=== PATIENT | female | born 1995 | race Two or more races ===

== ENCOUNTER 2018-06-26 04:58 | Inpatient (IN) | payer MEDICAID ==
[~2018-06-26] VITALS: Ht 157.5 cm; Wt 117.9 kg
[2018-06-26] VITALS (13 sets, daily range): BP systolic 106–146; BP diastolic 55–77
[2018-06-26] MEDS ORDERED: LACTATED RINGER'S 1,000 ML IV SCH (05:08)
[2018-06-26 06:09] LABS: Basophils # (auto) 0 uL; Basophils % (auto) 0.2 % (0.0-2.0); Eosinophils # (auto) 0.1 uL; Eosinophils % (auto) 0.7 % (0.0-7.0); Hematocrit 38.6 % (36.0-46.0); Hemoglobin 12.6 g/dL (12.2-16.2); Lymphocytes # (auto) 1.7 uL; Lymphocytes % (auto) 22.5 % (10.0-50.0); Mean Corpuscular Hgb Conc. 32.7 g/dL (32.0-36.0); Mean Corpuscular Volume 82.4 fL (80.0-100.0); Monocytes # (auto) 0.5 uL; Monocytes % (auto) 6.9 % (0.0-12.0); Neutrophils # (auto) 5.2 uL; Neutrophils % (auto) 69.7 % (37.0-80.0); Platelet Count (auto) 258 10^3/uL (140-450); Red Blood Cells 4.68 10^6/uL (4.0-5.20); Red Cell Distribution Width 15.3 % (11.8-14.3); White Blood Cell 7.4 10^3/uL (4.4-10.8)
[2018-06-26 06:17] LABS: Urine Bacteria NONE SEEN /hpf (None Seen); Urine Blood Negative /uL (Negative); Urine Mucus FEW (None Seen); Urine Specific Gravity 1.018 (1.001-1.035); Urine WBC 1 /hpf (0 - 5)
[2018-06-26 06:23] LABS: INR 0.87 (0.9-1.15); Partial Thromboplastin Time 27.3 sec (23.78-33.04); Prothrombin Time 9.4 sec (9.27-12.13)
[2018-06-26 06:31] LABS: Albumin 2.4 g/dL (3.4-5.0); BUN/Creatinine Ratio 16.7; Bilirubin, Total 0.2 mg/dL (0.2-1.0); Calcium 8.2 mg/dL (8.5-10.1); Potassium 3.9 mmol/L (3.5-5.1)
[2018-06-26] MEDS ORDERED: TETRACAINE 1% INJ 2 ML VIAL IJ ONE (08:50)
[2018-06-26] MEDS ORDERED: fentaNYL CITRATE 100 MCG/2 ML VL ONE (08:55)
[2018-06-26] MEDS ORDERED: SUCCINYLCHOLINE CHLORIDE 20 MG/ML 10ML VIAL IV ONE (09:09)
[2018-06-26] MEDS ORDERED: LACT. RINGERS/OXYTOCIN 20UNITS 1,000 ML IV SCH (10:13)
[2018-06-26] MEDS ORDERED: MORPHINE SULFATE 4 MG/ML SYR/VIAL IV PRN (10:15)
[2018-06-26] MEDS ORDERED: KETOROLAC TROMETH 30 MG/ML 1ML VIAL IV PRN (10:15)
[2018-06-26] MEDS ORDERED: ceFAZolin 1GM/50ML 50 ML IV SCH (10:15)
[2018-06-26] MEDS ORDERED: ONDANSETRON HCL 4 MG/2 ML VIAL IV PRN (10:15)
[2018-06-26] MEDS ORDERED: ePHEDrine SULFATE 50 MG/ML AMP IV PRN (10:45)
[2018-06-26] MEDS ORDERED: ONDANSETRON HCL 4 MG/2 ML VIAL IV ONE (10:45)
[2018-06-26] MEDS ORDERED: hydrALAZINE HCL 20 MG/ML VL IV PRN (10:45)
[2018-06-26] MEDS ORDERED: HYDROmorphone HCL 2 MG/ML VL IV PRN (10:45)
[2018-06-26] MEDS ORDERED: OXYTOCIN 10 UNIT/ML 10ML VIAL ONE (10:49)
[2018-06-26] MEDS ORDERED: OXYTOCIN 10UNIT/ML 1ML VIAL ONE (10:51)
[2018-06-26 11:17] LABS: Basophils # (auto) 0 uL; Basophils % (auto) 0.3 % (0.0-2.0); Eosinophils # (auto) 0 uL; Eosinophils % (auto) 0.4 % (0.0-7.0); Hematocrit 38.9 % (36.0-46.0); Hemoglobin 12.6 g/dL (12.2-16.2); Lymphocytes % (auto) 19.3 % (10.0-50.0); Mean Corpuscular Hemoglobin 27.3 pg (28.0-32.0); Mean Corpuscular Hgb Conc. 32.5 g/dL (32.0-36.0); Mean Corpuscular Volume 83.9 fL (80.0-100.0); Monocytes # (auto) 0.5 uL; Monocytes % (auto) 4.7 % (0.0-12.0); Neutrophils # (auto) 7.9 uL; Neutrophils % (auto) 75.3 % (37.0-80.0); Platelet Count (auto) 267 10^3/uL (140-450); Red Blood Cells 4.63 10^6/uL (4.0-5.20); Red Cell Distribution Width 15.7 % (11.8-14.3); White Blood Cell 10.4 10^3/uL (4.4-10.8)
[2018-06-26] MEDS: ceFAZolin 1GM/50ML 50 ML IV SCH (18:00)
[2018-06-26] MEDS: LACTATED RINGER'S 1,000 ML IV SCH (19:32)
[2018-06-26] MEDS: KETOROLAC TROMETH 30 MG/ML 1ML VIAL IV PRN (19:32)
[2018-06-26] MEDS: MORPHINE SULF INJ 2 MG/ML SYRINGE 1ML IV PRN (22:28)
[2018-06-27] MEDS: KETOROLAC TROMETH 30 MG/ML 1ML VIAL IV PRN (01:58)
[2018-06-27] MEDS: ceFAZolin 1GM/50ML 50 ML IV SCH ×2 (01:58→10:18)
[2018-06-27 02:50] VITALS: BP 115/52
[2018-06-27] MEDS: LACTATED RINGER'S 1,000 ML IV SCH (03:04)
[2018-06-27 04:06] LABS: RPR Non Reactive (Non Reactive)
[2018-06-27] MEDS: MORPHINE SULF INJ 2 MG/ML SYRINGE 1ML IV PRN (05:21)
[2018-06-27] MEDS ORDERED: TETANUS-DIPTH-ACEL PERTUSSIS 0.5ML SYRG IM ONE (06:30)
[2018-06-27 06:39] LABS: Basophils # (auto) 0 uL; Basophils % (auto) 0.2 % (0.0-2.0); Eosinophils # (auto) 0 uL; Eosinophils % (auto) 0.3 % (0.0-7.0); Hematocrit 31.4 % (36.0-46.0); Hemoglobin 10.5 g/dL (12.2-16.2); Lymphocytes # (auto) 1.3 uL; Lymphocytes % (auto) 16.2 % (10.0-50.0); Mean Corpuscular Hemoglobin 27.8 pg (28.0-32.0); Mean Corpuscular Hgb Conc. 33.3 g/dL (32.0-36.0); Mean Corpuscular Volume 83.5 fL (80.0-100.0); Monocytes # (auto) 0.5 uL; Monocytes % (auto) 5.5 % (0.0-12.0); Neutrophils # (auto) 6.5 uL; Neutrophils % (auto) 77.8 % (37.0-80.0); Platelet Count (auto) 221 10^3/uL (140-450); Red Blood Cells 3.77 10^6/uL (4.0-5.20); Red Cell Distribution Width 15.4 % (11.8-14.3); White Blood Cell 8.3 10^3/uL (4.4-10.8)
[2018-06-27 07:30] VITALS: BP 115/56
[2018-06-27] MEDS ORDERED: BISACODYL 10 MG RECT SUPP PR PRN (08:00)
[2018-06-27] MEDS: HYDROcodone-ACET 5/325MG TAB PO PRN ×3 (08:27→20:35)
[2018-06-27] MEDS: SIMETHICONE 80 MG CHEWABLE TABLET PO SCH ×4 (08:27→22:02)
[2018-06-27] MEDS: DOCUSATE SOD 100 MG CAP PO SCH ×2 (10:18→22:02)
[2018-06-27] MEDS: DOCUSATE CALCIUM 240 MG CAP PO SCH (10:18)
[2018-06-27 10:50] VITALS: BP 130/60
[2018-06-27] MEDS ORDERED: PREN27TA7 OR (11:00)
[2018-06-27] MEDS: IBUPROFEN 800 MG TAB PO PRN (12:01)
[2018-06-27 15:00] VITALS: BP 116/49
[2018-06-27 19:05] VITALS: BP 116/74
[2018-06-27 23:00] VITALS: BP 121/76
[2018-06-28] MEDS: HYDROcodone-ACET 5/325MG TAB PO PRN ×3 (01:02→16:50)
[2018-06-28 03:00] VITALS: BP 116/65
[2018-06-28] MEDS: SIMETHICONE 80 MG CHEWABLE TABLET PO SCH ×4 (05:43→21:34)
[2018-06-28 07:15] VITALS: BP 106/68
[2018-06-28] MEDS: IBUPROFEN 800 MG TAB PO PRN ×2 (09:44→19:04)
[2018-06-28] MEDS: DOCUSATE CALCIUM 240 MG CAP PO SCH (09:44)
[2018-06-28] MEDS: DOCUSATE SOD 100 MG CAP PO SCH ×2 (09:45→21:34)
[2018-06-28 11:15] VITALS: BP 130/71
[2018-06-28 15:00] VITALS: BP 129/74
[2018-06-28 19:15] VITALS: BP 110/62
[2018-06-28 23:06] VITALS: BP 117/49
[2018-06-29] MEDS: HYDROcodone-ACET 5/325MG TAB PO PRN ×2 (01:04→10:20)
[2018-06-29 03:00] VITALS: BP 128/69
[2018-06-29] MEDS: IBUPROFEN 800 MG TAB PO PRN (03:11)
[2018-06-29] MEDS: SIMETHICONE 80 MG CHEWABLE TABLET PO SCH (05:16)
[2018-06-29 07:20] VITALS: BP 125/75
[2018-06-29] MEDS ORDERED: MEASLES, MUMPS & RUBELLA VAC(MMRII) 0.5ML SC ONE (08:00)
[2018-06-29] MEDS: DOCUSATE CALCIUM 240 MG CAP PO SCH (10:19)
[2018-06-29] MEDS: DOCUSATE SOD 100 MG CAP PO SCH (10:19)
== END 2018-06-29 10:20 | disposition home or self-care (01) | DRG 540 ==
LOC: LDRP 04:58
PROVIDERS: ADMIT Obstetrics & Gynecology; ATTEND Obstetrics & Gynecology
PROC: 10D00Z1 Extraction of Products of Conception, Low, Open Approach (ICD-10-PCS; principal; 2018-06-26 09:04)
DX: O36.63X0 Maternal care for excessive fetal growth, third trimester, not applicable or unspecified (principal); Z68.42 Body mass index [BMI] 45.0-49.9, adult; O69.81X0 Labor and delivery complicated by cord around neck, without compression, not applicable or unspecified; E66.9 Obesity, unspecified; Z37.0 Single live birth; Z3A.40 40 weeks gestation of pregnancy; O99.214 Obesity complicating childbirth; O99.62 Diseases of the digestive system complicating childbirth; K21.9 Gastro-esophageal reflux disease without esophagitis
CPT/HCPCS: 36415; 51702; 59025; 80053; 81001; 81002; 85025; 85610; 85730; 86592; 86850; 86900; 86901; 90715; 94762; 96361; 96365; 96366; 96372; 96375; A6257; J0330; J0690; J1885; J2405; J2590

== ENCOUNTER 2019-04-13 20:50 | Observation (INO) | payer MEDICAID ==
[~2019-04-13] VITALS: Ht 157.5 cm; Wt 115.7 kg
[~2019-04-13 20:50] MED LIST: PREN27TA7 OR
[2019-04-13] MEDS ORDERED: LACTATED RINGER'S 1,000 ML IV ONE (22:09)
[2019-04-13 23:55] LABS: Urine Bacteria MOD /hpf (None Seen); Urine Blood Negative /uL (Negative); Urine Specific Gravity 1.021 (1.001-1.035); Urine WBC 100 /hpf (0 - 5)
== END 2019-04-13 23:47 | disposition home or self-care (01) | DRG 566 ==
LOC: LDRP 20:50
PROVIDERS: ADMIT Specialist; ATTEND Specialist
DX: O23.42 Unspecified infection of urinary tract in pregnancy, second trimester (principal); O99.322 Drug use complicating pregnancy, second trimester; F14.90 Cocaine use, unspecified, uncomplicated; Z3A.26 26 weeks gestation of pregnancy
CPT/HCPCS: 59025; 76815; 76817; 81001; 81002; G0378; 96365